=== PATIENT | male | born 1985 | race American Indian/Alaskan Native ===

== ENCOUNTER 2020-10-15 14:22 | Emergency (ER) | payer OTHER ==
--- NOTE | 2020-10-15 15:17 | CR ---
Indication: Chest pain Technique: Chest 1 view Comparison: None Findings/Impression: Cardiovascular and mediastinum: Unremarkable cardiomediastinal silhouette for a portable technique. Lungs and pleural space: Lungs are clear. No sign of infiltrate or mass. No sign of pleural effusion. No pneumothorax. Bones and soft tissues: No significant findings. An ovoid density projecting over the lower thoracic spine is likely overlying the patient. Dictated by Wiliam Rick MD @ Oct 15 2020 3:14PM Signed by Dr. Wiliam Rick @ Oct 15 2020 3:15PM
[2020-10-15] MEDS ORDERED: Ketorolac 30 MG/ML SDV IVPUSH ONE (15:33)
[2020-10-15 15:50] LABS: BLOOD UREA NITROGEN,BUN 12 mg/dL (7.0-18.0); CARBON DIOXIDE,CO2 25.3 mmol/L (21.0-32.0); CHLORIDE,CL 102 mmol/L (98-107); GLUCOSE RANDOM 137 mg/dL (74-106); POTASSIUM,K 3.5 mmol/L (3.5-5.1); SODIUM,NA 140 mmol/L (136-148)
[2020-10-15 16:27] VITALS: PULSE 76
--- NOTE | 2020-10-15 16:31 | EDM.PDOC ---
ED HPI GENERAL MEDICAL PROBLEM - General Chief Complaint: Chest Pain Stated Complaint: CHEST PAIN Time Seen by Provider: 10/15/20 14:33 - History of Present Illness INITIAL COMMENTS - FREE TEXT/NARRATIVE: CHIEF COMPLAINT(S): Chest pain HISTORY OF PRESENT ILLNESS: This is a 35-year-old man with a past medical history of hypertension not on medications and obesity who comes to the emergency department with a chief complaint of chest pain. The patient states that he has been experiencing left-sided chest pain and left shoulder pain and left neck pain. He describes the pain as mild 3-4 out of 10. He states that the pain is intermittent and worse when he moves. States that he is not yet taken any pain medications to help. He denies any associated symptoms such as shortness of breath, nausea, vomiting but states that he does have a mild headache on the left side of his head which wraps around in a bandlike distribution. He describes his headache as achy. He denies any associated symptoms such as blurry vision, numbness, tingling, weakness. He denies any trouble walking, trouble speaking, trouble swallowing. He describes the headache as mild 2-3 out of 10. There are no aggravating or relieving symptoms. In addition he states that he has this growth on his left eyelid that he is concerned about which he states is not causing him any pain. In addition he states that at night he feels like he is skipping a beat and sometimes wakes up gasping for air. States that he has not seen a primary care physician in quite some time. He denies any other issues. REVIEW OF SYSTEMS: Constitutional: Denies fever, chills. Eyes: Positive for growth on left eyelid. Denies eye pain Ears, Nose, Mouth, & Throat: Denies earache Cardiovascular: Positive for left-sided chest pain Respiratory: Denies shortness of breath Gastrointestinal: Denies abdominal pain, nausea, vomiting, diarrhea, hematochezia. Genitourinary: Denies hematuria Skin:Denies a rash MSK: Positive for left shoulder pain Neurological: Positive for headache. Denies blurred vision, numbness, tingling, weakness Psychiatric: Denies depression PAST MEDICAL HISTORY: As per history of present illness and as reviewed below otherwise noncontributory. SURGICAL HISTORY: As per history of present illness and as reviewed below otherwise noncontributory. SOCIAL HISTORY: As per history of present illness and as reviewed below otherwise noncontributory. FAMILY HISTORY: As per history of present illness and as reviewed below otherwise noncontributory. EXAMINATION OF ORGAN SYSTEMS/BODY AREAS: Constitutional: Blood pressure was 181/103, heart rate 106, respiratory rate 19 with an oxygen saturation 9 9% on room air. Temperature 36.1 General: Overall well-appearing man who is in no acute distress Psychiatric: Appears anxious and mildly agitated at times. Eyes: No scleral icterus or conjunctival erythema pupils are equal round reactive to light. Extraocular movements intact. On the patient's upper left eyelid he has a cholesteatoma. This is small and not in his visual bills. ENMT: Moist mucous membranes. No pharyngeal erythema tongue protrudes midline. Cardiovascular: Regular, rate, and rhythm. No gallops, murmurs, or rubs. Bilateral upper extremity pulses symmetric and intact. No peripheral edema. No JVD. Respiratory: Lungs clear to auscultation bilaterally. No wheezes, rales, or rhonchi. Gastrointestinal: Soft, non-tender, non-distended. Normoactive bowel sounds Genitourinary: No suprapubic tenderness Musculoskeletal: Normal range of motion. There is tenderness to palpation along the left-sided sternum without any overlying skin changes. There is tenderness to palpation at the base of the skull on the left side and the left neck extending to the shoulder. The patient has full range of his shoulder without any deformity. Skin: No lesions or abrasions. Neurological: Alert, GCS 15 strength and sensation grossly intact in upper and lower extremities bilaterally. MEDICAL DECISION MAKING AND COURSE IN THE ED WITH INTERPRETATION/REVIEW OF DIAGNOSTIC STUDIES: This is a 35-year-old man with a past medical history of hypertension not on home medication and obesity who comes to the emergency department with multiple complaints including acute left-sided chest pain, neck pain and shoulder pain with a mild headache. 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 EKG was obtained which did not reveal any acute signs of ischemia. We will obtain a set of basic labs including CBC, BMP, magnesium and troponin given the duration of the symptoms. If negative this is unlikely cardiac event his age. Will obtain a chest x-ray. We will provide the patient with Toradol for pain relief. Twelve-lead EKG interpreted by myself. Sinus tachycardia at a rate of 105 beats per minute. Normal axis. VT interval is 169 ms. QRS duration is [address] segments are normal without elevations or depressions. No Q waves present. Hypertrophy not noted. No prior EKGs. Interpretation: Sinus tachycardia Wells Criteria Clinical signs/symptoms of DVT: No (0) PE #1 Dx or equally likely: No (0) Heart Rate >100: Yes (1.5) Immobilization for 3 days or surgery in last month: No (0) Previously Dx PE or DVT: No (0) Hemoptysis: No (0) Malignancy w/ Tx within 6 months or palliative: No (0) Wells Score: 1.5. Patient is low risk for pulmonary embolism therefore no work-up will be initiated. Laboratory: CBC reveals a mild leukocytosis of 11.14 with normal indices. BMP is unremarkable. There is hyperglycemia at 137. Calcium is mildly low at 8.4. Magnesium is normal. Troponin is negative. The radiological images were viewed by myself along with reading the report from the radiologist. Chest x-ray does not reveal any acute cardiopulmonary process. After labs and imaging the patient's blood pressure and heart rate had significantly improved after pain administration. The patient seemed concerned about the skipped heartbeats and gasping for air at night. I did discuss them at this time that this could be secondary to sleep apnea however on her work-up today I do not see any arrhythmia or skipped beats. I did recommend follow-up with cardiology where they might place a Holter monitor to evaluate for any arrhythmia. I did discuss with him that there is consideration for obstructive sleep apnea given his gasping for air at night, hypertension, and skipped beats that he is feeling. His blood pressure did improve but I did recommend that he follow-up with his primary care physician to be connected for sleep lab and blood pressure management. I discussed with him that for the pain I do believe it is musculoskeletal. I discussed that he should use Tylenol and Motrin as prescribed and use [id number] Voltaren or lidocaine cream. He is to return to the emergency department for any new or worsening symptoms. He was amenable to discharge at this time and had no further questions. DISPOSITION: The patient was discharged home in stable condition. The patient will follow up with primary care physician and cardiology CONDITION: Fair PROCEDURES: None FINAL IMPRESSION(S)/DIAGNOSES: 1. Acute left-sided musculoskeletal chest wall pain 2. Acute tension headache 3. Hypertension uncontrolled Miguel Pickens M.D. - Related Data Allergies Allergy/AdvReac Type Severity Reaction Status Date / Time No Known Allergies Allergy Verified 10/15/20 15:06 Home Meds: Home Meds Acetaminophen [Tylenol Extra Strength] 500 mg PO Q6HR #28 tablet 10/15/20 [Rx] Ibuprofen 400 mg PO Q6HR #28 tablet 10/15/20 [Rx] Past Medical History - Past Health History Medical/Surgical History: Denies Medical/Surgical History Cardiovascular History: Reports: Other (See Below) Other Cardiovascular History: BP on higher side but not taking medication for it Respiratory History: Reports: Other (See Below) Other Respiratory History: severe snoring when sleeping on his back, no snoring when he's on his belly sleeping - Infectious Disease History Infectious Disease History: Reports: Chicken Pox Social & Family History - Family History Family Medical History: Unobtainable Other Cardiac Family History: unable to attain as no contact with parents - Tobacco Use Tobacco Use Status *Q: Former Tobacco User Used Tobacco, but Quit: Yes Month/Year Tobacco Last Used: 2018 - Recreational Drug Use Recreational Drug Use: Yes Recreational Drug Type: Reports: Marijuana/Hashish ED ROS GENERAL - Review of Systems Review Of Systems: See Below ED EXAM, GENERAL - Physical Exam Exam: See Below Course - Vital Signs Last Recorded V/S: Last Vital Signs Temp 36.1 C 10/15/20 15:07 Pulse 76 10/15/20 16:40 Resp 18 10/15/20 16:40 BP 160/91 H 10/15/20 16:40 Pulse Ox 97 10/15/20 16:40 - Orders/Labs/Meds Labs: Laboratory Tests 10/15/20 10/15/20 Range/Units 14:30 14:30 WBC 11.14 H (4.0-11.0) K/uL RBC 5.24 (4.50-5.90) M/uL Hgb 16.5 (13.0-17.0) g/dL Hct 48.1 (38.0-50.0) % MCV 91.8 (80.0-98.0) fL MCH 31.5 (27.0-32.0) pg MCHC 34.3 (31.0-37.0) g/dL RDW Std Deviation 42.0 (28.0-62.0) fl RDW Coeff of Rajinder 13 (11.0-15.0) % Plt Count 215 (150-400) K/uL MPV 10.80 (7.40-12.00) fL Neut % (Auto) 54.2 (48.0-80.0) % Lymph % (Auto) 34.9 (16.0-40.0) % [place] % (Auto) 8.5 (0.0-15.0) % Eos % (Auto) 1.7 (0.0-7.0) % Baso % (Auto) 0.7 (0.0-1.5) % Neut # (Auto) 6.0 H (1.4-5.7) K/uL Lymph # (Auto) 3.9 H (0.6-2.4) K/uL [place] # (Auto) 1.0 H (0.0-0.8) K/uL Eos # (Auto) 0.2 (0.0-0.7) K/uL Baso # (Auto) 0.1 (0.0-0.1) K/uL Nucleated RBC % 0.0 /100WBC Nucleated RBCs # 0 K/uL Sodium 140 (136-148) mmol/L Potassium 3.5 (3.5-5.1) mmol/L Chloride 102 (98-107) mmol/L Carbon Dioxide 25.3 (21.0-32.0) mmol/L BUN 12 (7.0-18.0) mg/dL Creatinine 1.0 (0.8-1.3) mg/dL Est Cr Clr Drug Dosing 121.02 mL/min Estimated GFR (MDRD) > 60.0 ml/min Glucose 137 H (74-106) mg/dL Calcium 8.4 L (8.5-10.1) mg/dL Magnesium 2.0 (1.8-2.4) mg/dL Troponin I < 0.050 (0.000-0.056) ng/mL Meds: Medications Discontinued Medications Generic Name Dose Route Start Last Admin Trade Name Freq PRN Reason Stop Dose Admin Ketorolac Tromethamine 30 mg 10/15/20 15:33 10/15/20 15:47 Toradol IVPUSH 02/11/21 15:34 30 mg ONETIME ONE Administration Departure - Departure Time of Disposition: 16:28 Disposition: Home, Self-Care 01 Condition: Fair Clinical Impression: Tension headache, Chest wall pain Hypertension Qualifiers: Hypertension type: essential hypertension Qualified Code(s): I10 - Essential (primary) hypertension Neck muscle strain Qualifiers: Encounter type: initial encounter Qualified Code(s): S16.1XXA - Strain of muscle, fascia and tendon at neck level, initial encounter - Discharge Information *PRESCRIPTION DRUG MONITORING PROGRAM REVIEWED*: No *COPY OF PRESCRIPTION DRUG MONITORING REPORT IN PATIENT CHIP: No Prescriptions: Ibuprofen 400 mg PO Q6HR #28 tablet Acetaminophen [Tylenol Extra Strength] 500 mg PO Q6HR #28 tablet Instructions: Chest Wall Pain, [id number], Cervical Strain and Sprain Rehab- [facility], Hypertension, Adult, [id number], Hypertension, Adult Referrals: PCP,Not In Area [Primary Care Provider] - Saul Reyes MD [Physician] - Forms: ED Department Discharge Additional Instructions: Your evaluated today on an emergent basis. At this time your work-up including labs and x-ray were normal. Your blood pressure is still elevated however I do recommend that you follow-up with primary care physician for management of your blood pressure and further work-up including for your cholesterol. At this time we did discuss with the that it is uncertain as to what you are experiencing at night with the sensation that your heart is skipping beats. I do recommend follow-up with cardiology as they might place a Holter monitor on you to figure out if there is any abnormal rhythms. In addition to this I do recommend that she discuss that she may have sleep apnea with your primary care physician so they can connect you with a sleep lab to figure this out. For the chest wall pain and the neck pain and headache I do recommend that you use Tylenol and Motrin as prescribed. You are welcome to use [id number] Voltaren cream and lidocaine cream for symptomatic relief. Please do the stretches we had discussed. If you have any new or worsening symptoms please return to the emergency department. [facility] - Primary Care [address] [place] [id number] [facility] [address] [place] [address] The patient is informed of any results of their evaluation and diagnostic workup and all questions are answered. They are given discharge instructions and return precautions. The patient is stable for discharge. The patient states they understand and agree with the plan and that they will return if their symptoms get worse or if they have any new concerns. The following information is given to patients seen in the emergency department who are being discharged to home. This information is to outline your options for follow-up care. We provide all patients seen in our emergency department with a follow-up referral. The need for follow-up, as well as the timing and circumstances, are variable depending upon the specifics of your emergency department visit. If you don't have a primary care physician on staff, we will provide you with a referral. We always advise you to contact your personal physician following an emergency department visit to inform them of the circumstance of the visit and for follow-up with them and/or the need for any referrals to a consulting specialist. The emergency department will also refer you to a specialist when appropriate. This referral assures that you have the opportunity for follow-up care with a specialist. All of these measure are taken in an effort to provide you with optimal care, which includes your follow-up. Under all circumstances we always encourage you to contact your private physician who remains a resource for coordinating your care. When calling for follow-up care, please make the office aware that this follow-up is from your recent emergency room visit. If for any reason you are refused follow-up, please contact the [facility] Emergency Department at and asked to speak to the emergency department charge nurse. Sepsis Event Note (ED) - Evaluation Sepsis Screening Result: No Definite Risk
[2020-10-15 17:06] VITALS: BP 160/91
== END 2020-10-15 16:40 | disposition home or self-care (01) ==
LOC: MW.ED 14:22
DX: S16.1XXA Strain of muscle, fascia and tendon at neck level, initial encounter (principal); I10 Essential (primary) hypertension; G44.209 Tension-type headache, unspecified, not intractable; E66.9 Obesity, unspecified; Z68.37 Body mass index [BMI] 37.0-37.9, adult; Z87.891 Personal history of nicotine dependence; X58.XXXA Exposure to other specified factors, initial encounter
CPT/HCPCS: 36415; 71045; 80048; 83735; 84484; 85025; 96374; 99285; J1885; 93010; 99283

== ENCOUNTER 2021-05-25 06:20 | Day surgery (SDC) | payer OTHER ==
[~2021-05-25 06:20] MED LIST: Lactated Ringers 1,000 ML IV SCH; Sodium Chloride 0.9% 10 ML SDV IV PRN; Sodium Chloride 0.9% 10 ML Syringe FLUSH PRN; Sodium Chloride 0.9% 2.5 ML Syringe FLUSH PRN
[2021-05-25] MEDS ORDERED: propofoL 50 ML ONE (07:27)
[2021-05-25] MEDS ORDERED: Lidocaine 2% 5 ML SDV ONE (07:37)
--- NOTE | 2021-05-25 07:38 | PCM.PREANE ---
Preanesthetic Assessment - Anesthesia/Transfusion/Family Hx Anesthesia History: Prior Anesthesia Without Reaction Transfusion History: No Prior Transfusion(s) - Review of Systems General: No Symptoms Pulmonary: No Symptoms Cardiovascular: No Symptoms Gastrointestinal: No Symptoms Neurological: No Symptoms Other: Reports: None - Physical Assessment NPO Status Date: 05/25/21 NPO Status Time: 00:00 Vital Signs: Last Vital Signs Temp 97.3 F 05/25/21 06:34 Pulse 75 05/25/21 06:34 Resp 16 05/25/21 06:34 BP 139/86 05/25/21 06:34 Pulse Ox 97 05/25/21 06:34 Height: 6 ft 1 in Weight: 303 lb ASA Class: 3 Mental Status: Alert & Oriented x3 Airway Class: Mallampati = 2 Dentition: Reports: Normal Dentition Thyro-Mental Finger Breadths: 3 Mouth Opening Finger Breadths: 3 ROM/Head Extension: Full Lungs: Clear to Auscultation, Normal Respiratory Effort Cardiovascular: Regular Rate, Regular Rhythm - Allergies Allergies/Adverse Reactions: Allergies Allergy/AdvReac Type Severity Reaction Status Date / Time No Known Allergies Allergy Verified 05/19/21 09:56 - Acknowledgements Anesthesia Type Planned: General Anesthesia Pt an Appropriate Candidate for the Planned Anesthesia: Yes Alternatives and Risks of Anesthesia Discussed w Pt/Guardian: Yes Pt/Guardian Understands and Agrees with Anesthesia Plan: Yes PreAnesthesia Questionnaire - Past Health History Medical/Surgical History: Denies Medical/Surgical History HEENT History: Reports: None Cardiovascular History: Reports: Hypertension Respiratory History: Reports: None Gastrointestinal History: Reports: Chronic Diarrhea, Other (See Below) Other Gastrointestinal History: states "digestive issues", bloody stools & diarrhea Genitourinary History: Reports: None Musculoskeletal History: Reports: None Neurological History: Reports: None Psychiatric History: Reports: None Endocrine/Metabolic History: Reports: Obesity/BMI 30+ Hematologic History: Reports: None Immunologic History: Reports: None Oncologic (Cancer) History: Reports: None Dermatologic History: Reports: None - Infectious Disease History Infectious Disease History: Reports: Chicken Pox - Past Surgical History Head Surgeries/Procedures: Reports: None HEENT Surgical History: Reports: None Cardiovascular Surgical History: Reports: None Respiratory Surgical History: Reports: None GI Surgical History: Reports: Appendectomy Male Surgical History: Reports: None Endocrine Surgical History: Reports: None Neurological Surgical History: Reports: None Musculoskeletal Surgical History: Reports: None Oncologic Surgical History: Reports: None Dermatological Surgical History: Reports: None - SUBSTANCE USE Tobacco Use Status *Q: Former Tobacco User Recreational Drug Type: Reports: Marijuana/Hashish Recreational Drug Last Use: 05/18/21 - HOME MEDS Home Medications: Home Meds Telmisartan 40 mg PO BEDTIME 05/19/21 [History] - CURRENT (IN HOUSE) MEDS Current Meds: Current Medications Lactated Ringer's (Ringers, Lactated) 1,000 mls @ 125 mls/hr IV ASDIRECTED JAE Last Admin: 05/25/21 06:38 Dose: 125 mls/hr Documented by: Sodium Chloride (Sodium Chloride 0.9% 10 Ml Syringe) 10 ml FLUSH ASDIRECTED PRN PRN Reason: Keep Vein Open Sodium Chloride (Sodium Chloride 0.9% 2.5 Ml Syringe) 2.5 ml FLUSH ASDIRECTED PRN PRN Reason: Keep Vein Open Sodium Chloride (Sodium Chloride 0.9% 10 Ml Syringe) 10 ml FLUSH ASDIRECTED PRN PRN Reason: Keep Vein Open Sodium Chloride (Sodium Chloride 0.9% 2.5 Ml Syringe) 2.5 ml FLUSH ASDIRECTED PRN PRN Reason: Keep Vein Open Sodium Chloride (Sodium Chloride 0.9% 10 Ml Sdv) 10 ml IV ASDIRECTED PRN PRN Reason: IV Use Discontinued Medications Propofol (Diprivan 50 Ml) Confirm Administered Dose 50 mls @ as directed .ROUTE .STK-MED ONE Stop: 05/25/21 07:28
[2021-05-25] MEDS ORDERED: fentaNYL 100 MCG/2 ML SDV ONE (07:42)
[2021-05-25] MEDS ORDERED: Propofol 200 MG/20 ML SDV ONE (08:08)
--- NOTE | 2021-05-25 08:32 | PCM.OPNOTE ---
- General Post-Op/Procedure Note Date of Surgery/Procedure: 05/25/21 Operative Procedure(s): Diagnostic EGD and colonoscopy Findings: Change in bowel habits, nausea and vomiting, BRBPR. Normal appearing EGD and grade II hemorrhoids Pre Op Diagnosis: Change in bowel habits, nausea and vomiting, BRBPR Post-Op Diagnosis: Grade II hemorrhoids, normal appearing EGD Anesthesia Technique: MAC Primary Surgeon: Sherly Tapia Condition: Good
[2021-05-25 08:47] VITALS: BP 120/63; PULSE 64
--- NOTE | 2021-05-25 08:59 | PCM.POSTAN ---
POST ANESTHESIA ASSESSMENT - MENTAL STATUS Mental Status: Alert, Oriented - VITAL SIGNS Vital Signs: Last Vital Signs Temp 97.2 F 05/25/21 08:35 Pulse 64 05/25/21 08:35 Resp 16 05/25/21 08:35 BP 120/63 05/25/21 08:35 Pulse Ox 98 05/25/21 08:35 - RESPIRATORY Respiratory Status: Respiratory Rate WNL, Airway Patent, O2 Saturation Stable - CARDIOVASCULAR CV Status: Pulse Rate WNL, Blood Pressure Stable - GASTROINTESTINAL GI Status: No Symptoms - POST OP HYDRATION Hydration Status: Adequate & Stable
--- NOTE | 2021-05-25 08:59 | PCM48HPAN ---
Post Anesthesia Note - EVALUATION WITHIN 48HRS OF ANESTHETIC Vital Signs in Normal Range: Yes Patient Participated in Evaluation: Yes Respiratory Function Stable: Yes Airway Patent: Yes Cardiovascular Function Stable: Yes Hydration Status Stable: Yes Pain Control Satisfactory: Yes Nausea and Vomiting Control Satisfactory: Yes Mental Status Recovered: Yes Vital Signs: Last Vital Signs Temp 97.2 F 05/25/21 08:35 Pulse 64 05/25/21 08:35 Resp 16 05/25/21 08:35 BP 120/63 05/25/21 08:35 Pulse Ox 98 05/25/21 08:35
--- NOTE | 2021-05-25 09:05 | OR ---
SURGEON: SHERLY TAPIA MD DATE OF PROCEDURE: 05/25/2021 PREOPERATIVE DIAGNOSES: Nausea and vomiting, change in bowel habits, and bright red bleeding per rectum. POSTOPERATIVE DIAGNOSES: 1. Normal-appearing esophagogastroduodenoscopy. 2. Grade 2 hemorrhoids. PROCEDURE PERFORMED: Diagnostic esophagogastroduodenoscopy and colonoscopy. PRIMARY SURGEON: Sherly Tapia MD ANESTHESIA: MAC. INSTRUMENT USED: Olympus endoscope and colonoscope. EXTENT OF EXAM: To the second portion of duodenum, to the cecum. PREPARATION: Good. LIMITATIONS: None. INDICATIONS FOR EXAMINATION: The patient is a 36-year-old male who presented to my clinic 6 weeks ago with an acute change in his bowel habits, nausea, and vomiting as well as some bright red bleeding per rectum. Workup revealed the patient was positive for COVID. He has undergone quarantine. I visiting with him today. His symptoms have improved overall. The decision was made to still proceed with diagnostic EGD and colonoscopy to rule out any other etiology. I explained the procedure, expected perioperative course, and the risks. He verbalized understanding and wishes to proceed. PROCEDURE IN DETAIL: The patient was brought to the endoscopy suite and placed in the left lateral decubitus position. A time-out was completed verifying the patient's name, age, date of , allergies, and procedure to be performed. Monitored anesthesia care was induced, and a bite block was placed in the patient's mouth. Face mask was used to deliver oxygen throughout the procedure. After adequate sedation was achieved, a well-lubricated endoscope was placed in the patient's mouth and advanced under direct visualization to the second portion of duodenum. This appeared normal, and a photograph was taken. The scope was then straightened out and fully withdrawn while the examining the color, texture, anatomy, and integrity of the mucosa from the second portion of duodenum to the mouth. The duodenum appeared normal. The scope was brought into the stomach, and a photograph taken of the pylorus and GE junction. Both appeared anatomically normal. I saw no evidence of inflammation or ulceration within the gastric mucosa. Biopsies were taken of the gastric antrum, body, and fundus and sent for histologic review and H. pylori testing. Scope was brought into the distal esophagus. The Z-line appeared normal. Narrow band imaging was used, and this appeared normal as well. A biopsy was taken 1 cm above the esophagus and sent to Pathology for histologic review. The remainder of the esophagus was normal. The scope was removed, and this portion of procedure terminated. A digital rectal exam was performed. The patient was noted to have a grade 2 left lateral hemorrhoid. There was no evidence of recent bleeding. A well-lubricated colonoscope was inserted into the rectum and advanced under direct visualization to the level of cecum. Cecum was identified by both visual and anatomic landmarks. A photograph was taken of the cecal cap as well as the terminal ileum. I was unable to retroflex the scope within the cecum due to looping of the scope more proximally. The scope was then fully withdrawn while examining the color, texture, anatomy, and integrity of mucosa from the cecum to the anal canal. The colonic mucosa all appeared normal. Biopsies were taken of the cecum, ascending colon, transverse colon, descending colon, sigmoid colon, and rectum and sent to Pathology for histologic review. Photograph was taken of normal-appearing rectum. The scope was then retroflexed to allow visualization of the anal canal opening. This appeared grossly normal. A photograph was taken. The scope was straightened out and fully withdrawn. The cecum to anus time was 8 minutes. The patient tolerated the procedure well and was transferred to the PACU in stable condition. ENDOSCOPIC DIAGNOSES: 1. Normal-appearing esophagogastroduodenoscopy. 2. Grade 2 hemorrhoids. RECOMMENDATIONS: Follow up in clinic in 2 weeks to discuss the biopsy results and any further steps in treatment. JUANJO LOCO /[id number]
== END 2021-05-25 08:48 | disposition home or self-care (01) ==
LOC: MW.SDS 06:20
PROVIDERS: ATTEND Surgery
DX: R19.4 Change in bowel habit (principal); K64.1 Second degree hemorrhoids; K29.50 Unspecified chronic gastritis without bleeding; K20.90 Esophagitis, unspecified without bleeding; I10 Essential (primary) hypertension; E66.9 Obesity, unspecified; Z79.899 Other long term (current) drug therapy; Z90.49 Acquired absence of other specified parts of digestive tract; Z87.891 Personal history of nicotine dependence; Z86.16 Personal history of COVID-19; Z68.41 Body mass index [BMI] 40.0-44.9, adult
CPT/HCPCS: 00813; 88305; 88342; J2704; J3010; J7120